=== PATIENT | male | born 1930 | race Caucasian/White ===

== ENCOUNTER 2022-02-08 06:39 | Inpatient (IN) ==
[2022-02-08] MEDS ORDERED: SODIUM CHLORIDE 0.9% 500 ML IV STA (07:06)
[2022-02-08] MEDS ORDERED: CLINDAMYCIN INJ 600 MG/50 ML PREMIX IV STA (07:07)
[2022-02-08] MEDS ORDERED: LEVOFLOXACIN INJ 500 MG/100 ML PREMIX IV STA (07:07)
[2022-02-08] MEDS ORDERED: methylPREDNISolone SOD SUC 125 MG/2 ML VIAL IV STA (07:07)
[2022-02-08] MEDS ORDERED: ALBUTEROL 2.5 MG/3 ML NEB RESP TX STA (07:07)
[2022-02-08 07:13] LABS: Basophils # 0.1 10*3/uL (0.0-0.2); Basophils % 0.2 % (0.0-0.8); Eosinophils % 0.2 % (0.00-10.9); Hemoglobin 10.2 GM/DL (14.0-18.0); Immature Granulocytes % 1.3 %; Immature Granulocytes Absolute 0.27 #; Lymphocytes # 1.5 10*3/uL (1.4-4.0); Mean Corpuscular HGB Conc 30.9 GM/DL (32-36); Mean Corpuscular Volume 91.7 FL (87-102); Mean Platelet Volume 10.9 FL (9.6-12.0); Monocytes # 1.4 10*3/uL (0.11-0.8); Monocytes % 6.5 % (1.7-12.7); Neutrophils % 84.8 % (38.7-73.9); Platelet Count 318 T/CUMM (130-400); Red Cell Distribution Width 16.7 % (9.3-17.3); White Blood Count 20.9 T/CUMM (4-12)
[2022-02-08 07:34] LABS: Band Neutrophils 1 % (0-10); Bilirubin,Total 0.5 MG/DL (0.20-1.00); Calcium 8.6 MG/DL (8.5-10.1); Lymphocytes 10 % (20-55); Osmolality,Calculated 285.2 MOS/KG (273-304); Potassium 4.9 MMOL/L (3.5-5.1); Total Cells Counted 100; Total Protein 7.4 G/DL (6.4-8.2)
[2022-02-08] MEDS ORDERED: ETOMIDATE 20 MG/10 ML VIAL IV ONE (07:38)
[2022-02-08] MEDS ORDERED: ROCURONIUM 100 MG/10 ML VIAL IV ONE (07:39)
[2022-02-08 07:41] LABS: Hypochromia Slight; Microcytosis Slight
[2022-02-08 07:42] LABS: Platelet Estimate Adequate
[2022-02-08 07:46] LABS: Arterial Base Excess iSTAT 11 MMOL/L (-2.5-2.5); Arterial Bicarbonate iSTAT 39.5 MMOL/L (20-26); Arterial O2 Saturation iSTAT 100 % (95-100); Arterial PCO2 iSTAT 65 MM HG (35-48); Arterial PO2 iSTAT 340 MM HG (80-95); Arterial Total CO2 iSTAT 41 MMO/L (23-27); Arterial pH iSTAT 7.394 (7.35-7.45)
[2022-02-08] MEDS ORDERED: ONDANSETRON 4 MG/2 ML VIAL IV PRN (10:21)
[2022-02-08] MEDS ORDERED: MAGNESIUM HYDROXIDE SUSP 30 ML UDCUP PEG PRN (10:25)
[2022-02-08] MEDS ORDERED: ACETAMINOPHEN 325 MG TABLET PEG PRN (10:25)
[2022-02-08] MEDS ORDERED: ALBUTEROL/IPRATROPIUM 3 ML NEB RESP TX PRN (10:25)
[2022-02-08] MEDS ORDERED: FONDAPARINUX 2.5 MG/0.5 ML SYRINGE SUBCUT SCH (10:30)
[2022-02-08 11:49] LABS: Hyaline Casts,Urine 1 /LPF (0-3); Mucus,Urine Occasional /LPF (Occasional); RBC,Urine 122 /HPF (0-4); Squamous Epithelial Cell,Urine Occasional /HPF (0-10)
[2022-02-08 11:57] LABS: Bilirubin,Urine Negative (Negative); Blood, Urine Moderate mg/dL (Negative); Glucose,Urine (UA) Negative (Negative); Ketones,Urine Negative (Negative); Nitrite,Urine Negative (Negative); Protein,Urine 100 mg/dL (Negative); Urine Appearance Clear (Clear); Urine Color Yellow (Yellow); Urine Specific Gravity 1.025 (1.001-1.035); Urine Urobilinogen 0.2 eU/dL (<2.0); Urine pH 5.5 (4.5-8.0)
[2022-02-08] MEDS ORDERED: CARBOXYMETHYLCELLULOSE 1% OPH SOLN BOTH EYES PRN (15:54)
[2022-02-08] MEDS: FUROSEMIDE 40 MG TABLET PEG SCH (16:36)
[2022-02-08] MEDS: PROPRANOLOL 10 MG TABLET PEG SCH (23:10)
[2022-02-09] MEDS: CARBIDOPA/LEVODOPA 10-100 MG TABLET PEG SCH ×4 (00:27→20:37)
[2022-02-09 04:39] LABS: Basophils % 0.2 % (0.0-0.8); Hematocrit 30.4 VOL% (42.0-52.0); Hemoglobin 9.4 GM/DL (14.0-18.0); Immature Granulocytes % 1.5 %; Immature Granulocytes Absolute 0.17 #; Lymphocytes # 1.5 10*3/uL (1.4-4.0); Lymphocytes % 13.8 % (21.2-54.2); Mean Corpuscular HGB Conc 30.9 GM/DL (32-36); Mean Corpuscular Volume 92.1 FL (87-102); Mean Platelet Volume 10.1 FL (9.6-12.0); Monocytes % 9.5 % (1.7-12.7); Platelet Count 262 T/CUMM (130-400); Red Cell Distribution Width 16.1 % (9.3-17.3)
[2022-02-09 05:28] LABS: Alanine Aminotransferase 19 U/L (16-61); Albumin 1.9 G/DL (3.4-5.0); Alkaline Phosphatase 118 U/L (45-117); Aspartate Amino Transferase 28 U/L (0-37); Bilirubin,Total < 0.39 MG/DL (0.20-1.00); Blood Urea Nitrogen 58 MG/DL (7-18); Calcium 8.6 MG/DL (8.5-10.1); Carbon Dioxide 32 MMOL/L (21-32); Chloride 97 MMOL/L (98-107); Glucose 138 MG/DL (74-106); Osmolality,Calculated 290.8 MOS/KG (273-304); Sodium 137 MMOL/L (136-145); Total Protein 7.3 G/DL (6.4-8.2)
[2022-02-09] MEDS ORDERED: LEVOFLOXACIN INJ 750 MG/150 ML PREMIX IV SCH (09:00)
[2022-02-09] MEDS: FUROSEMIDE 40 MG TABLET PEG SCH (09:21)
[2022-02-09] MEDS: PROPRANOLOL 10 MG TABLET PEG SCH ×3 (09:24→20:37)
[2022-02-09] MEDS: POLYETHYLENE GLYCOL POWDER 17 GM PACK PEG SCH (09:24)
[2022-02-09] MEDS: CHOLECALCIFEROL 1,000 UNIT TABLET PEG SCH (09:24)
[2022-02-09] MEDS: OMEPRAZOLE ODT 20 MG TABLET PEG SCH (09:24)
[2022-02-09] MEDS: DULoxetine 30 MG CAPSULE PO SCH (09:24)
[2022-02-09] MEDS: amLODIPine 10 MG TABLET PEG SCH (09:24)
[2022-02-09] MEDS: CYANOCOBALAMIN 500 MCG TABLET PEG SCH (09:24)
[2022-02-09] MEDS: FLUTICASONE 50 MCG NASAL SPRAY 16 GM BOTTLE BOTH NARES SCH (09:25)
[2022-02-09] MEDS: ZINC SULFATE 220 MG CAPSULE PEG SCH (09:25)
[2022-02-09] MEDS: CEFEPIME 1,000 MG in SODIUM CHLORIDE 0.9% 100 ML IV SCH ×2 (14:29→20:37)
[2022-02-10] MEDS: CEFEPIME 1,000 MG in SODIUM CHLORIDE 0.9% 100 ML IV SCH ×5 (04:29→20:16)
[2022-02-10 05:00] LABS: Basophils % 0.2 % (0.0-0.8); Eosinophils % 0.1 % (0.00-10.9); Hematocrit 27.7 VOL% (42.0-52.0); Hemoglobin 8.3 GM/DL (14.0-18.0); Immature Granulocytes % 1.3 %; Immature Granulocytes Absolute 0.11 #; Lymphocytes # 1.5 10*3/uL (1.4-4.0); Lymphocytes % 18.3 % (21.2-54.2); Mean Corpuscular Volume 93.6 FL (87-102); Mean Platelet Volume 9.9 FL (9.6-12.0); Monocytes # 0.9 10*3/uL (0.11-0.8); Monocytes % 10.8 % (1.7-12.7); Neutrophils % 69.3 % (38.7-73.9); Platelet Count 235 T/CUMM (130-400); Red Blood Count 2.96 MC/CUMM (3.8-5.5); Red Cell Distribution Width 16.2 % (9.3-17.3); White Blood Count 8.3 T/CUMM (4-12)
[2022-02-10 05:15] LABS: Phosphorous 3.8 MG/DL (2.5-4.9)
[2022-02-10 05:20] LABS: % Iron Saturation 21.8 % (18-50); Calcium 8.6 MG/DL (8.5-10.1); Ferritin 518.6 ng/mL (26-388); Osmolality,Calculated 299.4 MOS/KG (273-304); Potassium 3.6 MMOL/L (3.5-5.1)
[2022-02-10] MEDS: POLYETHYLENE GLYCOL POWDER 17 GM PACK PEG SCH ×2 (07:58→09:45)
[2022-02-10] MEDS: OMEPRAZOLE ODT 20 MG TABLET PEG SCH ×2 (07:59→09:45)
[2022-02-10] MEDS: CARBIDOPA/LEVODOPA 10-100 MG TABLET PEG SCH ×4 (07:59→20:16)
[2022-02-10] MEDS: CHOLECALCIFEROL 1,000 UNIT TABLET PEG SCH ×2 (07:59→09:46)
[2022-02-10] MEDS: CYANOCOBALAMIN 500 MCG TABLET PEG SCH ×2 (07:59→09:46)
[2022-02-10] MEDS: PROPRANOLOL 10 MG TABLET PEG SCH ×2 (07:59→09:46)
[2022-02-10] MEDS: amLODIPine 10 MG TABLET PEG SCH ×2 (07:59→09:45)
[2022-02-10] MEDS: FLUTICASONE 50 MCG NASAL SPRAY 16 GM BOTTLE BOTH NARES SCH (09:45)
[2022-02-10] MEDS: DULoxetine 30 MG CAPSULE PO SCH (09:45)
[2022-02-10] MEDS: ZINC SULFATE 220 MG CAPSULE PEG SCH (09:46)
[2022-02-10] MEDS: FUROSEMIDE 40 MG/4 ML VIAL IV SCH ×2 (10:24→16:34)
[2022-02-10] MEDS: LOSARTAN 25 MG TABLET PEG SCH (13:09)
[2022-02-10] MEDS: ASPIRIN CHEW 81 MG TABLET PO SCH (16:34)
[2022-02-10] MEDS: FERROUS SULFATE 325 MG TABLET PO SCH (20:16)
[2022-02-10] MEDS: METOPROLOL TARTRATE 25 MG TABLET PEG SCH (20:16)
[2022-02-11] MEDS: CEFEPIME 1,000 MG in SODIUM CHLORIDE 0.9% 100 ML IV SCH ×4 (03:43→21:49)
[2022-02-11 05:58] LABS: Basophils % 0.4 % (0.0-0.8); Eosinophils # 0.1 10*3/uL (0.0-0.87); Eosinophils % 0.6 % (0.00-10.9); Hematocrit 28.3 VOL% (42.0-52.0); Hemoglobin 8.5 GM/DL (14.0-18.0); Immature Granulocytes % 1.5 %; Immature Granulocytes Absolute 0.12 #; Lymphocytes # 1.7 10*3/uL (1.4-4.0); Lymphocytes % 21.2 % (21.2-54.2); Mean Corpuscular Volume 92.5 FL (87-102); Mean Platelet Volume 9.9 FL (9.6-12.0); Monocytes % 12.2 % (1.7-12.7); Neutrophils % 64.1 % (38.7-73.9); Platelet Count 227 T/CUMM (130-400); Red Blood Count 3.06 MC/CUMM (3.8-5.5); Red Cell Distribution Width 16.4 % (9.3-17.3); White Blood Count 7.8 T/CUMM (4-12)
[2022-02-11 06:16] LABS: Calcium 8.6 MG/DL (8.5-10.1); Osmolality,Calculated 300.3 MOS/KG (273-304); Potassium 3.4 MMOL/L (3.5-5.1)
[2022-02-11] MEDS ORDERED: POTASSIUM CHLORIDE 20 MEQ TABLET PO ONE (07:50)
[2022-02-11] MEDS: OMEPRAZOLE ODT 20 MG TABLET PEG SCH (09:22)
[2022-02-11] MEDS: FERROUS SULFATE 325 MG TABLET PO SCH ×2 (09:22→21:51)
[2022-02-11] MEDS: CARBIDOPA/LEVODOPA 10-100 MG TABLET PEG SCH ×3 (09:22→21:51)
[2022-02-11] MEDS: CYANOCOBALAMIN 500 MCG TABLET PEG SCH (09:23)
[2022-02-11] MEDS: LOSARTAN 25 MG TABLET PEG SCH (09:23)
[2022-02-11] MEDS: CHOLECALCIFEROL 1,000 UNIT TABLET PEG SCH (09:23)
[2022-02-11] MEDS: METOPROLOL TARTRATE 25 MG TABLET PEG SCH ×2 (09:23→21:50)
[2022-02-11] MEDS: amLODIPine 10 MG TABLET PEG SCH (09:23)
[2022-02-11] MEDS: ASPIRIN CHEW 81 MG TABLET PO SCH (09:24)
[2022-02-11] MEDS: POLYETHYLENE GLYCOL POWDER 17 GM PACK PEG SCH (09:24)
[2022-02-11] MEDS: FUROSEMIDE 40 MG/4 ML VIAL IV SCH ×2 (09:24→17:33)
[2022-02-11] MEDS: DULoxetine 30 MG CAPSULE PO SCH (09:24)
[2022-02-11 10:17] LABS: Basophils % 0.2 % (0.0-0.8); Eosinophils # 0.1 10*3/uL (0.0-0.87); Eosinophils % 0.7 % (0.00-10.9); Hematocrit 30.5 VOL% (42.0-52.0); Hemoglobin 9.2 GM/DL (14.0-18.0); Immature Granulocytes % 1.6 %; Immature Granulocytes Absolute 0.14 #; Lymphocytes # 1.7 10*3/uL (1.4-4.0); Lymphocytes % 19.2 % (21.2-54.2); Mean Corpuscular HGB Conc 30.2 GM/DL (32-36); Mean Corpuscular Volume 92.4 FL (87-102); Mean Platelet Volume 9.9 FL (9.6-12.0); Monocytes # 0.9 10*3/uL (0.11-0.8); Neutrophils % 68.3 % (38.7-73.9); Platelet Count 259 T/CUMM (130-400); Red Cell Distribution Width 16.1 % (9.3-17.3); White Blood Count 8.7 T/CUMM (4-12)
[2022-02-11 10:33] LABS: INR 0.9; PT Patient Result 10.3 SECS (10.1-12.1)
[2022-02-11] MEDS: ZINC SULFATE 220 MG CAPSULE PEG SCH (11:34)
[2022-02-11] MEDS: FLUTICASONE 50 MCG NASAL SPRAY 16 GM BOTTLE BOTH NARES SCH (11:46)
[2022-02-11] MEDS: SODIUM CHLORIDE 0.45% 1,000 ML IV SCH (13:12)
[2022-02-11] MEDS: MELATONIN 3 MG TABLET PO SCH (21:51)
[2022-02-12] MEDS: CEFEPIME 1,000 MG in SODIUM CHLORIDE 0.9% 100 ML IV SCH ×4 (03:26→22:18)
[2022-02-12 05:27] LABS: Basophils % 0.2 % (0.0-0.8); Eosinophils # 0.1 10*3/uL (0.0-0.87); Eosinophils % 0.7 % (0.00-10.9); Hemoglobin 8.6 GM/DL (14.0-18.0); Immature Granulocytes % 1.5 %; Immature Granulocytes Absolute 0.13 #; Lymphocytes # 1.5 10*3/uL (1.4-4.0); Lymphocytes % 17.5 % (21.2-54.2); Mean Corpuscular HGB Conc 29.7 GM/DL (32-36); Mean Corpuscular Volume 95.4 FL (87-102); Mean Platelet Volume 9.9 FL (9.6-12.0); Monocytes # 0.9 10*3/uL (0.11-0.8); Monocytes % 10.3 % (1.7-12.7); Neutrophils % 69.8 % (38.7-73.9); Platelet Count 224 T/CUMM (130-400); Red Blood Count 3.04 MC/CUMM (3.8-5.5); Red Cell Distribution Width 16.1 % (9.3-17.3); White Blood Count 8.6 T/CUMM (4-12)
[2022-02-12 05:46] LABS: Osmolality,Calculated 300.3 MOS/KG (273-304); Potassium 3.7 MMOL/L (3.5-5.1)
[2022-02-12] MEDS ORDERED: FUROSEMIDE 40 MG/4 ML VIAL IV SCH (09:00)
[2022-02-12] MEDS: POLYETHYLENE GLYCOL POWDER 17 GM PACK PEG SCH (10:01)
[2022-02-12] MEDS: ASPIRIN CHEW 81 MG TABLET PO SCH (10:01)
[2022-02-12] MEDS: DULoxetine 30 MG CAPSULE PO SCH (10:01)
[2022-02-12] MEDS: FUROSEMIDE 40 MG/4 ML VIAL IV SCH (10:01)
[2022-02-12] MEDS: LOSARTAN 25 MG TABLET PEG SCH (10:01)
[2022-02-12] MEDS: CARBIDOPA/LEVODOPA 10-100 MG TABLET PEG SCH ×3 (10:01→22:19)
[2022-02-12] MEDS: CYANOCOBALAMIN 500 MCG TABLET PEG SCH (10:01)
[2022-02-12] MEDS: METOPROLOL TARTRATE 25 MG TABLET PEG SCH ×2 (10:02→22:19)
[2022-02-12] MEDS: amLODIPine 10 MG TABLET PEG SCH (10:02)
[2022-02-12] MEDS: FERROUS SULFATE 325 MG TABLET PO SCH ×2 (10:02→22:19)
[2022-02-12] MEDS: CHOLECALCIFEROL 1,000 UNIT TABLET PEG SCH (10:02)
[2022-02-12] MEDS: OMEPRAZOLE ODT 20 MG TABLET PEG SCH (10:02)
[2022-02-12] MEDS: ZINC SULFATE 220 MG CAPSULE PEG SCH (10:49)
[2022-02-12] MEDS: FLUTICASONE 50 MCG NASAL SPRAY 16 GM BOTTLE BOTH NARES SCH (10:49)
[2022-02-12] MEDS: SODIUM CHLORIDE 0.45% 1,000 ML IV SCH (10:49)
[2022-02-12] MEDS: MELATONIN 3 MG TABLET PO SCH (22:18)
[2022-02-13] MEDS: CEFEPIME 1,000 MG in SODIUM CHLORIDE 0.9% 100 ML IV SCH ×4 (03:50→21:43)
[2022-02-13 05:10] LABS: Basophils % 0.4 % (0.0-0.8); Eosinophils # 0.1 10*3/uL (0.0-0.87); Eosinophils % 0.8 % (0.00-10.9); Hematocrit 28.7 VOL% (42.0-52.0); Hemoglobin 8.5 GM/DL (14.0-18.0); Immature Granulocytes % 1.4 %; Immature Granulocytes Absolute 0.13 #; Lymphocytes # 1.6 10*3/uL (1.4-4.0); Lymphocytes % 17.3 % (21.2-54.2); Mean Corpuscular HGB Conc 29.6 GM/DL (32-36); Mean Corpuscular Volume 95.7 FL (87-102); Mean Platelet Volume 9.9 FL (9.6-12.0); Monocytes # 0.9 10*3/uL (0.11-0.8); Monocytes % 9.3 % (1.7-12.7); Neutrophils % 70.8 % (38.7-73.9); Platelet Count 210 T/CUMM (130-400); Red Cell Distribution Width 16.3 % (9.3-17.3); White Blood Count 9.4 T/CUMM (4-12)
[2022-02-13 05:23] LABS: Calcium 9.2 MG/DL (8.5-10.1); Osmolality,Calculated 299.1 MOS/KG (273-304); Potassium 3.9 MMOL/L (3.5-5.1)
[2022-02-13] MEDS: POLYETHYLENE GLYCOL POWDER 17 GM PACK PEG SCH (09:16)
[2022-02-13] MEDS: DULoxetine 30 MG CAPSULE PO SCH (09:17)
[2022-02-13] MEDS: OMEPRAZOLE ODT 20 MG TABLET PEG SCH (09:17)
[2022-02-13] MEDS: ASPIRIN CHEW 81 MG TABLET PO SCH (09:17)
[2022-02-13] MEDS: FERROUS SULFATE 325 MG TABLET PO SCH ×2 (09:17→21:42)
[2022-02-13] MEDS: METOPROLOL TARTRATE 25 MG TABLET PEG SCH ×2 (09:17→21:42)
[2022-02-13] MEDS: CYANOCOBALAMIN 500 MCG TABLET PEG SCH (09:18)
[2022-02-13] MEDS: LOSARTAN 25 MG TABLET PEG SCH (09:18)
[2022-02-13] MEDS: amLODIPine 10 MG TABLET PEG SCH (09:18)
[2022-02-13] MEDS: CARBIDOPA/LEVODOPA 10-100 MG TABLET PEG SCH ×3 (09:18→21:42)
[2022-02-13] MEDS: CHOLECALCIFEROL 1,000 UNIT TABLET PEG SCH (09:18)
[2022-02-13] MEDS: FUROSEMIDE 40 MG TABLET PO SCH (09:19)
[2022-02-13] MEDS: FLUTICASONE 50 MCG NASAL SPRAY 16 GM BOTTLE BOTH NARES SCH (11:23)
[2022-02-13] MEDS: ZINC SULFATE 220 MG CAPSULE PEG SCH (11:23)
[2022-02-13] MEDS: MELATONIN 3 MG TABLET PO SCH (21:42)
[2022-02-14] MEDS: CEFEPIME 1,000 MG in SODIUM CHLORIDE 0.9% 100 ML IV SCH ×2 (03:50→09:22)
[2022-02-14 05:25] LABS: Basophils # 0.1 10*3/uL (0.0-0.2); Basophils % 0.6 % (0.0-0.8); Eosinophils # 0.1 10*3/uL (0.0-0.87); Eosinophils % 0.9 % (0.00-10.9); Hematocrit 29.1 VOL% (42.0-52.0); Hemoglobin 8.6 GM/DL (14.0-18.0); Immature Granulocytes % 3.6 %; Immature Granulocytes Absolute 0.37 #; Lymphocytes # 1.7 10*3/uL (1.4-4.0); Lymphocytes % 16.2 % (21.2-54.2); Mean Corpuscular HGB Conc 29.6 GM/DL (32-36); Mean Corpuscular Volume 94.2 FL (87-102); Mean Platelet Volume 10.3 FL (9.6-12.0); Monocytes % 9.5 % (1.7-12.7); Neutrophils % 69.2 % (38.7-73.9); Platelet Count 220 T/CUMM (130-400); Red Blood Count 3.09 MC/CUMM (3.8-5.5); Red Cell Distribution Width 16.3 % (9.3-17.3); White Blood Count 10.2 T/CUMM (4-12)
[2022-02-14 05:40] LABS: Calcium 8.8 MG/DL (8.5-10.1); Osmolality,Calculated 295.3 MOS/KG (273-304); Potassium 3.9 MMOL/L (3.5-5.1)
[2022-02-14] MEDS: CARBIDOPA/LEVODOPA 10-100 MG TABLET PEG SCH ×3 (09:22→22:21)
[2022-02-14] MEDS: FERROUS SULFATE 325 MG TABLET PO SCH ×2 (09:22→22:21)
[2022-02-14] MEDS: ASPIRIN CHEW 81 MG TABLET PO SCH (09:23)
[2022-02-14] MEDS: FUROSEMIDE 40 MG TABLET PO SCH (09:23)
[2022-02-14] MEDS: CHOLECALCIFEROL 1,000 UNIT TABLET PEG SCH (09:23)
[2022-02-14] MEDS: amLODIPine 10 MG TABLET PEG SCH (09:23)
[2022-02-14] MEDS: DULoxetine 30 MG CAPSULE PO SCH (09:23)
[2022-02-14] MEDS: METOPROLOL TARTRATE 25 MG TABLET PEG SCH ×2 (09:23→22:21)
[2022-02-14] MEDS: OMEPRAZOLE ODT 20 MG TABLET PEG SCH (09:23)
[2022-02-14] MEDS: POLYETHYLENE GLYCOL POWDER 17 GM PACK PEG SCH (09:24)
[2022-02-14] MEDS: ZINC SULFATE 220 MG CAPSULE PEG SCH (09:24)
[2022-02-14] MEDS: LOSARTAN 25 MG TABLET PEG SCH (09:24)
[2022-02-14] MEDS: CYANOCOBALAMIN 500 MCG TABLET PEG SCH (09:24)
[2022-02-14] MEDS: FLUTICASONE 50 MCG NASAL SPRAY 16 GM BOTTLE BOTH NARES SCH (09:25)
[2022-02-14] MEDS: MELATONIN 3 MG TABLET PO SCH (22:21)
[2022-02-15 06:02] LABS: Basophils % 0.4 % (0.0-0.8); Eosinophils # 0.2 10*3/uL (0.0-0.87); Eosinophils % 1.5 % (0.00-10.9); Hematocrit 29.6 VOL% (42.0-52.0); Immature Granulocytes % 3.6 %; Immature Granulocytes Absolute 0.37 #; Lymphocytes % 18.9 % (21.2-54.2); Mean Corpuscular HGB Conc 30.4 GM/DL (32-36); Mean Corpuscular Volume 94.3 FL (87-102); Mean Platelet Volume 10.1 FL (9.6-12.0); Monocytes # 1.2 10*3/uL (0.11-0.8); Monocytes % 11.4 % (1.7-12.7); Neutrophils % 64.2 % (38.7-73.9); Platelet Count 222 T/CUMM (130-400); Red Blood Count 3.14 MC/CUMM (3.8-5.5); Red Cell Distribution Width 16.2 % (9.3-17.3); White Blood Count 10.3 T/CUMM (4-12)
[2022-02-15 06:24] LABS: Calcium 9.3 MG/DL (8.5-10.1); Osmolality,Calculated 292.4 MOS/KG (273-304)
[2022-02-15] MEDS: CHOLECALCIFEROL 1,000 UNIT TABLET PEG SCH (09:41)
[2022-02-15] MEDS: METOPROLOL TARTRATE 25 MG TABLET PEG SCH ×2 (09:41→22:14)
[2022-02-15] MEDS: FERROUS SULFATE 325 MG TABLET PO SCH ×2 (09:41→22:14)
[2022-02-15] MEDS: CYANOCOBALAMIN 500 MCG TABLET PEG SCH (09:41)
[2022-02-15] MEDS: amLODIPine 10 MG TABLET PEG SCH (09:41)
[2022-02-15] MEDS: FUROSEMIDE 40 MG TABLET PO SCH (09:41)
[2022-02-15] MEDS: LOSARTAN 25 MG TABLET PEG SCH ×2 (09:41→22:14)
[2022-02-15] MEDS: ASPIRIN CHEW 81 MG TABLET PO SCH (09:41)
[2022-02-15] MEDS: CARBIDOPA/LEVODOPA 10-100 MG TABLET PEG SCH ×3 (09:41→22:14)
[2022-02-15] MEDS: OMEPRAZOLE ODT 20 MG TABLET PEG SCH (09:42)
[2022-02-15] MEDS: FLUTICASONE 50 MCG NASAL SPRAY 16 GM BOTTLE BOTH NARES SCH (09:42)
[2022-02-15] MEDS: DULoxetine 30 MG CAPSULE PO SCH (09:43)
[2022-02-15] MEDS: ZINC SULFATE 220 MG CAPSULE PEG SCH (09:43)
[2022-02-15] MEDS: POLYETHYLENE GLYCOL POWDER 17 GM PACK PEG SCH (09:43)
[2022-02-15] MEDS: MELATONIN 3 MG TABLET PO SCH (22:14)
[2022-02-16 06:21] LABS: Basophils % 0.4 % (0.0-0.8); Eosinophils # 0.2 10*3/uL (0.0-0.87); Eosinophils % 1.5 % (0.00-10.9); Hematocrit 29.9 VOL% (42.0-52.0); Hemoglobin 8.9 GM/DL (14.0-18.0); Immature Granulocytes % 2.9 %; Lymphocytes % 19.4 % (21.2-54.2); Mean Corpuscular HGB Conc 29.8 GM/DL (32-36); Mean Corpuscular Volume 94.3 FL (87-102); Mean Platelet Volume 10.4 FL (9.6-12.0); Monocytes # 1.1 10*3/uL (0.11-0.8); Monocytes % 10.8 % (1.7-12.7); Platelet Count 249 T/CUMM (130-400); Red Blood Count 3.17 MC/CUMM (3.8-5.5); Red Cell Distribution Width 16.3 % (9.3-17.3); White Blood Count 10.3 T/CUMM (4-12)
[2022-02-16 06:48] LABS: Calcium 9.3 MG/DL (8.5-10.1); Osmolality,Calculated 292.4 MOS/KG (273-304); Potassium 4.4 MMOL/L (3.5-5.1)
[2022-02-16] MEDS: CHOLECALCIFEROL 1,000 UNIT TABLET PEG SCH (10:00)
[2022-02-16] MEDS: LOSARTAN 25 MG TABLET PEG SCH ×2 (10:00→20:38)
[2022-02-16] MEDS: OMEPRAZOLE ODT 20 MG TABLET PEG SCH (10:01)
[2022-02-16] MEDS: ASPIRIN CHEW 81 MG TABLET PO SCH (10:01)
[2022-02-16] MEDS: DULoxetine 30 MG CAPSULE PO SCH (10:01)
[2022-02-16] MEDS: FERROUS SULFATE 325 MG TABLET PO SCH ×2 (10:01→20:38)
[2022-02-16] MEDS: CARBIDOPA/LEVODOPA 10-100 MG TABLET PEG SCH ×3 (10:01→20:38)
[2022-02-16] MEDS: amLODIPine 10 MG TABLET PEG SCH (10:02)
[2022-02-16] MEDS: FLUTICASONE 50 MCG NASAL SPRAY 16 GM BOTTLE BOTH NARES SCH (10:02)
[2022-02-16] MEDS: METOPROLOL TARTRATE 25 MG TABLET PEG SCH ×2 (10:02→20:38)
[2022-02-16] MEDS: POLYETHYLENE GLYCOL POWDER 17 GM PACK PEG SCH (10:02)
[2022-02-16] MEDS: CYANOCOBALAMIN 500 MCG TABLET PEG SCH (10:02)
[2022-02-16] MEDS: FUROSEMIDE 40 MG TABLET PO SCH (10:05)
[2022-02-16] MEDS: ZINC SULFATE 220 MG CAPSULE PEG SCH (10:25)
[2022-02-16] MEDS: MELATONIN 3 MG TABLET PO SCH (20:38)
[2022-02-17 03:24] VITALS: BP 161/80
== END 2022-02-17 02:20 | disposition expired | DRG 177 ==
LOC: N.ED 06:39 → SUATTDRO 10:21 → N.EDINP 10:21 → N.5E 15:52
PROVIDERS: ADMIT Internal Medicine; ATTEND Internal Medicine